=== PATIENT | female | born 1990 | race Caucasian/White ===

== ENCOUNTER 2017-06-28 11:35 | Inpatient (IN) | payer OTHER ==
[2017-06-28] MEDS ORDERED: DEXTROSE 5%-LACTATED RINGERS 1,000 ML IV PRN (11:38)
[2017-06-28] MEDS ORDERED: RINGER'S SOLUTION,LACTATED 1,000 ML IV ONE (11:38)
[2017-06-28] MEDS ORDERED: LIDOCAINE HCL 50 ML VIAL PERI PRN (11:38)
[2017-06-28] MEDS ORDERED: OXYTOCIN/DEXTROSE 5%-WATER 30 UNITS/500 ML BAG IV ONE ×2 (11:38→12:56)
[2017-06-28] MEDS ORDERED: ONDANSETRON HCL/PF 2 MG/ML VIAL IV PRN ×3 (11:38→12:02)
[2017-06-28] MEDS ORDERED: PENICILLIN G POTASSIUM 5 MILLIONUNT in DEXTROSE 5 % IN WATER 100 ML IV ONE ×2 (11:38)
[2017-06-28] MEDS ORDERED: BUPIVACAINE HCL/0.9 % NACL/PF 250 ML EP PRN ×2 (11:56→12:02)
[2017-06-28] MEDS ORDERED: NALOXONE HCL 1 MG/1 ML SYRG IV PRN ×2 (11:56→12:02)
[2017-06-28 12:00] LABS: Hematocrit 34.6 % (37.0-47.0); Hemoglobin 12.2 gm/dL (12.5-16.0); Mean Cell Volume 91.5 fl (78-100); Mean Corpuscular Hemoglobin 32.3 pg (27-31); Mean Corpuscular Hgb Conc 35.3 g/dl (32-36); Neutrophil # 9.1 K/mm3 (1.3-6.0); Neutrophil % 70.6 % (42-75.0); Platelet Count 239 K/mm3 (150-450); Red Blood Count 3.78 M/mm3 (4.2-5.4); Red Cell Distribution Width 13.2 % (11.5-14.0); White Blood Count 12.9 K/mm3 (4.0-10.5)
[2017-06-28] MEDS ORDERED: BUPIVACAINE HCL/PF 30 ML VIAL EP SCH (12:00)
[2017-06-28] MEDS ORDERED: fentaNYL CITRATE/PF 50 MCG/ML AMPUL IT SCH (12:15)
[2017-06-28] MEDS ORDERED: MISOPROSTOL 100 MCG TABLET VG PRN (12:30)
[2017-06-28] MEDS ORDERED: MISOPROSTOL 100 MCG TABLET RC ONE (12:39)
[2017-06-28] MEDS ORDERED: BISACODYL 10 MG SUPP.RECT RC PRN (12:56)
[2017-06-28] MEDS ORDERED: oxyCODONE HCL/ACETAMINOPHEN 1 TAB TABLET PO PRN (12:56)
[2017-06-28] MEDS ORDERED: GLYCERIN/WITCH HAZEL LEAF 40 APPL BOX TP PRN (12:56)
[2017-06-28] MEDS ORDERED: BENZOCAINE/MENTHOL 81 SPRAY CAN TP PRN (12:56)
[2017-06-28] MEDS ORDERED: IBUPROFEN 800 MG TABLET PO PRN (12:56)
[2017-06-28] MEDS ORDERED: SENNOSIDES 8.6 MG TABLET PO PRN (12:56)
[2017-06-28] MEDS ORDERED: HYDROCORTISONE 30 APPL TUBE TP PRN (12:56)
--- NOTE | 2017-06-28 13:31 | OR ---
Operative Report - Dictated Report Narrative: Spontaneous vaginal delivery of viable female at 1228 on 06/28/2017 with Apgars 9 and 9, weighing 3060 g in SHUBHAM position with nuchal cord 1. Cord clamping delayed approximately 1 minute Placenta delivered complete, intact, with three vessel cord Estimated blood loss: 200 mL due to uterine atony which responded to uterine massage, Pitocin 30 milliunits a minute, and 400 g of Cytotec rectally. Lacerations: First degree left labia minora laceration with no repair needed.
[2017-06-28] MEDS ORDERED: PENICILLIN G POTASSIUM 2.5 MILLIONUNT in DEXTROSE 5 % IN WATER 100 ML IV SCH ×2 (15:38)
[2017-06-28 16:54] LABS: Cocaine Ur Negative (NEGATIVE); Urine Barbiturate Negative (NEGATIVE); Urine Benzodiazepines Negative (NEGATIVE); Urine Opiates Negative (NEGATIVE); Urine PCP Negative (NEGATIVE); Urine THC Negative (NEGATIVE)
[2017-06-28] MEDS: DOCUSATE SODIUM 100 MG CAPSULE PO SCH (20:33)
[2017-06-28] MEDS: oxyCODONE HCL/ACETAMINOPHEN 1 TAB TABLET PO PRN (23:44)
[2017-06-29] MEDS: oxyCODONE HCL/ACETAMINOPHEN 1 TAB TABLET PO PRN ×2 (07:30→20:27)
[2017-06-29] MEDS: DOCUSATE SODIUM 100 MG CAPSULE PO SCH ×2 (08:13→20:27)
--- NOTE | 2017-06-29 13:50 | PN ---
Progess Note - Interim Narrative: 06/29/17 13:47 Patient denies complaints. Lochia wnl Abdomen - soft, nontender Uterus - firm, at umbilicus - 1 No calf tenderness Drug screen on mother and baby positive for amphetamines. Patient admits to meth use. Impression: day #1 - s/p spontaneous vaginal delivery. Nonadherence to care. Meth use during . Plan: Continue routine care. Patient counseled on effects of meth use to her and baby. She understands [facility] will be contacted and evaluate her.
[2017-06-30] MEDS: DOCUSATE SODIUM 100 MG CAPSULE PO SCH (09:25)
--- NOTE | 2017-06-30 09:29 | PN ---
Subjective - Date and Time Seen Date: 06/30/17 Time: 09:27 Objective - Vitals Vitals: Last Vital Signs Temp 36.4 C L 06/30/17 01:32 CDT Pulse 62 06/30/17 01:32 CDT Resp 18 06/30/17 01:32 CDT BP 102/55 06/30/17 01:32 CDT Pulse Ox 97 06/30/17 01:32 CDT Patient denies complaints. Lochia wnl Abdomen - soft, nontender Uterus - firm, at umbilicus - 2 No calf tenderness Impression: day #2 - s/p spontaneous vaginal delivery. Nonadherence to care. Meth use during - [facility] was consulted and seen patient. Plan: Routine discharge instructions. Counseled on risk of substance abuse to her and baby.
[2017-06-30 09:52] VITALS: BP 116/62
== END 2017-06-30 11:15 | disposition home or self-care (01) | DRG 774 ==
LOC: OB 11:35
PROVIDERS: ADMIT Obstetrics & Gynecology; ATTEND Obstetrics & Gynecology
PROC: 10E0XZZ Delivery of Products of Conception, External Approach (ICD-10-PCS; principal; 2017-06-28)
PROC: 4A1HXCZ Monitoring of Products of Conception, Cardiac Rate, External Approach (ICD-10-PCS; 2017-06-28)
DX: O99.824 Streptococcus B carrier state complicating childbirth (principal); O98.32 Other infections with a predominantly sexual mode of transmission complicating childbirth; O69.81X0 Labor and delivery complicated by cord around neck, without compression, not applicable or unspecified; O70.0 First degree perineal laceration during delivery; O75.89 Other specified complications of labor and delivery; O42.02 Full-term premature rupture of membranes, onset of labor within 24 hours of rupture; O99.324 Drug use complicating childbirth; F15.90 Other stimulant use, unspecified, uncomplicated; O99.334 Smoking (tobacco) complicating childbirth; A60.04 Herpesviral vulvovaginitis; Z3A.40 40 weeks gestation of pregnancy; Z37.0 Single live birth